=== PATIENT | female | born 1965 | race Caucasian/White ===

== ENCOUNTER 2023-10-09 13:38 | Outpatient (CLI) | payer BC | END 2023-10-09 13:39 | disposition home or self-care (01) | LOC: CSHMAMMO 13:38 | PROVIDERS: ATTEND Family Medicine | DX: Z12.31 Encounter for screening mammogram for malignant neoplasm of breast (principal) | CPT/HCPCS: 77063; 77067 ==

== ENCOUNTER 2024-05-27 12:17 | Outpatient (CLI) | payer BC, OTHER ==
[2024-05-27 15:46] LABS: Anion Gap 15 mmol/L (10-20); BUN (Urea Nitrogen) 15 mg/dL (9.8-20.1); Calc. Creatinine Clearance 0 mL/min (70-130); Calcium 10.9 mg/dL (7.8-10.44); Carbon Dioxide 23 mmol/L (22-29); Chloride 99 mmol/L (98-107); Estimated GFR 70; Glucose 362 mg/dL (70-105); Potassium 4.7 mmol/L (3.5-5.1); Sodium 132 mmol/L (136-145)
== END 2024-05-27 12:18 | disposition home or self-care (01) ==
LOC: CSHLAB 12:17
PROVIDERS: ATTEND Surgery
DX: Z01.818 Encounter for other preprocedural examination (principal); C64.9 Malignant neoplasm of unspecified kidney, except renal pelvis
CPT/HCPCS: 80048; 93005; 93010

== ENCOUNTER 2024-05-29 06:47 | Day surgery (SDC) | payer BC, OTHER ==
[2024-05-27 12:45] VITALS: BMI 26.2
[2024-05-29] MEDS ORDERED: Bupivacaine HCl 0.5%/Epinephrine 1:200,000/PF 30 ml Vial ONE (07:58)
[2024-05-29] MEDS ORDERED: PROPOFOL 20 ML ONE (08:09)
[2024-05-29] MEDS ORDERED: Lidocaine 1% PF 5 ML VIAL ONE (08:12)
[2024-05-29] MEDS ORDERED: Ondansetron PF 4 MG/2 ML Vial ONE (08:12)
[2024-05-29] MEDS ORDERED: Dexamethasone 4 mg/ml Vial ONE (08:12)
[2024-05-29] MEDS ORDERED: fentaNYL 50 mcg/mL 1 mL Vial ONE (09:05)
[2024-05-29] MEDS ORDERED: CEFAZOLIN 2 GM VIAL ONE (09:10)
[2024-05-29] MEDS ORDERED: PHENYLEPHRINE-NS 100 MCG/ML 10 ML SYRINGE ONE (09:29)
== END 2024-05-29 11:15 | disposition home or self-care (01) ==
LOC: CSHSDC 06:47
PROVIDERS: ATTEND Surgery
PROC: 0JH63WZ Insertion of Totally Implantable Vascular Access Device into Chest Subcutaneous Tissue and Fascia, Percutaneous Approach (ICD-10-PCS; principal; 2024-05-29)
DX: C64.1 Malignant neoplasm of right kidney, except renal pelvis (principal); C78.01 Secondary malignant neoplasm of right lung; C78.02 Secondary malignant neoplasm of left lung; E11.9 Type 2 diabetes mellitus without complications; F41.9 Anxiety disorder, unspecified; Z79.899 Other long term (current) drug therapy; Z79.51 Long term (current) use of inhaled steroids; Z98.890 Other specified postprocedural states
CPT/HCPCS: 71045; C1788; J1100; J1642; J2405; J2704; J3010

== ENCOUNTER 2024-08-15 09:58 | Outpatient (CLI) | payer BC, OTHER ==
[2024-08-15] MEDS ORDERED: Iopamidol 370 76% 100 ML VIAL ONE (13:37)
== END 2024-08-15 09:59 | disposition home or self-care (01) ==
LOC: CSHCT 09:58
PROVIDERS: ATTEND Internal Medicine
DX: C64.2 Malignant neoplasm of left kidney, except renal pelvis (principal); C78.2 Secondary malignant neoplasm of pleura; R59.1 Generalized enlarged lymph nodes; N13.30 Unspecified hydronephrosis
CPT/HCPCS: 71260; 74177; 82565; Q9967

== ENCOUNTER 2024-09-01 08:46 | Outpatient (CLI) | payer BC, OTHER | END 2024-09-01 08:47 | disposition home or self-care (01) | LOC: CSHMRI 08:46 | PROVIDERS: ATTEND Internal Medicine | DX: C64.2 Malignant neoplasm of left kidney, except renal pelvis (principal); C79.51 Secondary malignant neoplasm of bone | CPT/HCPCS: 70553; 76376 ==

== ENCOUNTER 2025-04-22 08:28 | Outpatient (CLI) | payer BC, OTHER ==
[2025-04-22] MEDS ORDERED: Iopamidol 370 76% 100 ML VIAL ONE (14:04)
== END 2025-04-22 08:29 | disposition home or self-care (01) ==
LOC: CSHCT 08:28
PROVIDERS: ATTEND Internal Medicine
DX: C64.2 Malignant neoplasm of left kidney, except renal pelvis (principal); C79.51 Secondary malignant neoplasm of bone; R91.1 Solitary pulmonary nodule
CPT/HCPCS: 70553; 71260; 74177; 76376; Q9967

== ENCOUNTER 2025-06-05 07:37 | Outpatient (CLI) | payer BC, OTHER ==
[2025-06-05] MEDS ORDERED: Iopamidol 300 61% 100 ML VIAL FS ONE (09:36)
== END 2025-06-05 07:38 | disposition home or self-care (01) ==
LOC: CSHCT 07:37
PROVIDERS: ATTEND Radiology Radiation Oncology
DX: R91.8 Other nonspecific abnormal finding of lung field (principal)
CPT/HCPCS: 71260; Q9967